=== PATIENT | male | born 1980 | race Caucasian/White ===

== ENCOUNTER 2017-07-07 14:15 | Observation (INO) | payer OTHER ==
[2017-07-07 16:26] LABS: Hematocrit 38 % (42-52); Hemoglobin 12.9 g/dl (14.0-18.0); Mean Corpuscular HGB Conc 34 g/dl (31-36); Mean Corpuscular Hemoglobin 32 pg (27-31); Mean Corpuscular Volume 94 fL (80-94); Mean Platelet Volume 7 um3 (7.4-10.4); Red Blood Count 4.07 10^6/ul (4.0-5.4); Red Cell Distribution Width 13 % (10.5-15); White Blood Count 7.3 10^3/ul (3.5-10.8)
[2017-07-07 16:37] LABS: ALT 14 U/L (7-52); AST 19 U/L (13-39); Albumin 4.8 g/dL (3.2-5.2); Alkaline Phosphatase 40 U/L (34-104); Anion Gap 7 mmol/L (2-11); BUN/Creatinine Ratio 10.1 (8-20); Blood Urea Nitrogen 7 mg/dL (6-24); CO2 Carbon Dioxide 29 mmol/L (22-32); Calcium 9.3 mg/dL (8.6-10.3); Chloride 102 mmol/L (101-111); EGFR African American 165.9 (>60); Globulin 2.1 g/dL (2-4); Glucose 109 mg/dL (70-100); Lipase 15 U/L (11.0-82.0); Potassium 3.5 mmol/L (3.5-5.0); Sodium 138 mmol/L (133-145); Total Protein 6.9 g/dL (6.4-8.9)
[2017-07-07 17:08] LABS: Urine Bilirubin Negative (Negative); Urine Glucose Negative (Negative); Urine Nitrite Negative (Negative)
[2017-07-07 17:51] LABS: C Reactive Protein < 1.00 mg/L (< 5.00)
[2017-07-07] MEDS ORDERED: NS 0.9% 1000 ML* 1,000 ML IV ONE (18:17)
[2017-07-07] MEDS ORDERED: Morphine INJ* 4 MG/ML 1 ML CARPUJECT IV ONE (18:18)
[2017-07-07] MEDS ORDERED: Ondansetron INJ* 2 MG/ML VIAL IV ONE (18:23)
--- NOTE | 2017-07-07 19:37 | RAD ---
Indication: RIGHT upper quadrant pain. Comparison: No relevant prior exams available on the [facility] PACS for comparison. Technique: RIGHT upper quadrant ultrasound. Report: Appropriate direction flow documented in the portal and hepatic veins. 17.2 cm liver is normal in echogenicity. Negative for focal hepatic lesions. Negative for intrahepatic biliary dilatation. 2.6 mm common bile duct. Adequately distended gallbladder with normal 2.0 mm wall is without pathologic finding. Negative for sonographic Reyes's sign. Unremarkable well visualized pancreas. Negative for ascites. 10.7 cm RIGHT kidney is unremarkable. Normal diameter abdominal aorta visualized through the bifurcation. IMPRESSION: Negative RIGHT upper quadrant ultrasound.
--- NOTE | 2017-07-07 19:41 | ED ---
Abdominal Pain/Male - HPI Summary HPI Summary: 37M presents with generalized abdominal pain today. It started while he was eating today at noon. He states it is worst in the center of his epigastrium. He states he is nauseous at times. He denies any vomiting. He denies any blood in his urine or stool. He denies any diarrhea or constipation. He has never had this pain before. He denies any previous abdominal surgeries. He had normal bowel movement this morning. He states pain started right after eating. He had a sandwich. He denies any dysuria, hematuria. He states the pain starts in the front and radiates to the back. He denies any chest pain or SOB. He denies any fevers. He denies any history of GERD symptoms. He denies any generalized feeling of being unwell. - History of Current Complaint Chief Complaint: EDAbdPain Stated Complaint: ABD PAIN Time Seen by Provider: 07/07/17 18:09 Pain Intensity: 8 - Allergies/Home Medications Allergies/Adverse Reactions: Allergies Allergy/AdvReac Type Severity Reaction Status Date / Time No Known Allergies Allergy Verified 07/07/17 14:22 Home Medications: Home Medications NK [No Home Medications Reported] 07/07/17 [History Confirmed 07/07/17] PMH/Surg Hx/FS Hx/Imm Hx Endocrine/Hematology History: Denies: Hx Anticoagulant Therapy, Hx Diabetes Cardiovascular History: Denies: Hx Hypertension Infectious Disease History: No Infectious Disease History: Denies: Traveled Outside the [place] in Last 30 Days - Family History Known Family History: Positive: Other - no history of UC or crohns - Social History Alcohol Use: Weekly Substance Use Type: Reports: None Smoking Status (MU): Never Smoked Tobacco Review of Systems Negative: Fever Negative: Chest Pain Negative: Shortness Of Breath Positive: Abdominal Pain, Nausea. Negative: Vomiting, Diarrhea All Other Systems Reviewed And Are Negative: Yes Physical Exam Triage Information Reviewed: Yes Vital Signs On Initial Exam: Initial Vitals Temp Pulse Resp BP Pulse Ox 97.4 F 52 17 113/67 100 07/07/17 14:21 07/07/17 14:21 07/07/17 14:21 07/07/17 14:21 07/07/17 14:21 Vital Signs Reviewed: Yes Appearance: Positive: Pain Distress Skin: Positive: Warm, Dry Head/Face: Positive: Normal Head/Face Inspection Eyes: Positive: Normal, EOMI, DARRELL, Conjunctiva Clear ENT: Positive: Normal ENT inspection, Pharynx normal, TMs normal Respiratory/Lung Sounds: Positive: Clear to Auscultation, Breath Sounds Present Cardiovascular: Positive: Normal, RRR Abdomen Description: Positive: Soft, Other: - diffusely tender, great in epigastric Bowel Sounds: Positive: Present - [place] Coma Scale Coma Scale Total: 15 Diagnostics - Vital Signs Vital Signs Temp Pulse Resp BP Pulse Ox 07/07/17 19:20 18 07/07/17 18:59 87 21 100 07/07/17 18:30 55 19 119/71 99 07/07/17 18:00 113/68 07/07/17 17:59 51 15 100 07/07/17 17:55 50 100 07/07/17 17:52 112/68 07/07/17 17:39 98.3 F 55 17 104/60 97 07/07/17 16:11 97.8 F 58 18 114/66 100 07/07/17 14:21 97.4 F 52 17 113/67 100 - Laboratory Lab Results: Lab Results 07/07/17 07/07/17 07/07/17 Range/Units 15:35 15:35 16:50 WBC 7.3 (3.5-10.8) 10^3/ul RBC 4.07 (4.0-5.4) 10^6/ul Hgb 12.9 L (14.0-18.0) g/dl Hct 38 L (42-52) % MCV 94 (80-94) fL MCH 32 H (27-31) pg MCHC 34 (31-36) g/dl RDW 13 (10.5-15) % Plt Count 165 (150-450) 10^3/ul MPV 7 L (7.4-10.4) um3 Neut % (Auto) 87.7 H (38-83) % Lymph % (Auto) 8.4 L (25-47) % [place] % (Auto) 3.7 (1-9) % Eos % (Auto) 0.1 (0-6) % Baso % (Auto) 0.1 (0-2) % Absolute Neuts (auto) 6.4 (1.5-7.7) 10^3/ul Absolute Lymphs (auto) 0.6 L (1.0-4.8) 10^3/ul Absolute Monos (auto) 0.3 (0-0.8) 10^3/ul Absolute Eos (auto) 0 (0-0.6) 10^3/ul Absolute Basos (auto) 0 (0-0.2) 10^3/ul Absolute Nucleated RBC 0 10^3/ul Nucleated RBC % 0.1 Sodium 138 (133-145) mmol/L Potassium 3.5 (3.5-5.0) mmol/L Chloride 102 (101-111) mmol/L Carbon Dioxide 29 (22-32) mmol/L Anion Gap 7 (2-11) mmol/L BUN 7 (6-24) mg/dL Creatinine 0.69 (0.67-1.17) mg/dL Est GFR ( Amer) 165.9 (>60) Est GFR (Non-Af Amer) 129.0 (>60) BUN/Creatinine Ratio 10.1 (8-20) Glucose 109 H (70-100) mg/dL Calcium 9.3 (8.6-10.3) mg/dL Total Bilirubin 1.90 H (0.2-1.0) mg/dL AST 19 (13-39) U/L ALT 14 (7-52) U/L Alkaline Phosphatase 40 (34-104) U/L Troponin I 0.00 (<0.04) ng/mL C-Reactive Protein < 1.00 (< 5.00) mg/L Total Protein 6.9 (6.4-8.9) g/dL Albumin 4.8 (3.2-5.2) g/dL Globulin 2.1 (2-4) g/dL Albumin/Globulin Ratio 2.3 (1-3) Lipase 15 (11.0-82.0) U/L Urine Color Yellow Urine Appearance Clear Urine pH 6.0 (5-9) Ur Specific [place] 1.015 (1.010-1.030) Urine Protein Negative (Negative) Urine Ketones 1+ H (Negative) Urine Blood Negative (Negative) Urine Nitrate Negative (Negative) Urine Bilirubin Negative (Negative) Urine Urobilinogen Negative (Negative) Ur Leukocyte Esterase Negative (Negative) Urine Glucose Negative (Negative) Urine Ascorbic Acid * H (Negative) Result Diagrams: 07/07/17 15:35 07/07/17 15:35 Lab Statement: Any lab studies that have been ordered have been reviewed, and results considered in the medical decision making process. - CT abd CT Interpretation: Positive (See Comments) - IMPRESSION: 1. Normal appendix documented. 2. Top normal diameter of multiple small bowel loops in the RIGHT abdomen with air-fluid levels with transition to decompressed distal ileal loops and surrounding mild perienteric inflammatory change. Consider gastroenteritis as well as partial small bowel obstruction. No definitive obstructing lesion identified. 3. Small volume of ascites. Negative for free air. CT Interpretation Completed By: Radiologist - Ultrasound No standard instances Ultrasound Interpretation: No Acute Changes Ultrasound Interpretation Completed By: Radiologist - EKG No standard instances Cardiac Rate: NL EKG Rhythm: Sinus Rhythm ST Segment: Normal EKG Interpretation: normal ekg Re-Evaluation - Re-Evaluation First Eval Re-Evaluation Time: 20:15 Change: Improved Comment: feeling better cramp like in epigastric still Second Eval Re-Evaluation Time: 10:00 Change: Improved Comment: feeling better, no nausea, discussed results with patient Third Eval Re-Evaluation Time: 22:57 Change: Unchanged Comment: no nausea, states feels bloated Fourth Eval Re-Evaluation Time: 23:44 Change: Worse Comment: pain is worst, just as severe as before Abdominal Pain Fem Course/Dx - Course Course Of Treatment: 37M presents with generalized abdominal pain today. It started while he was eating today at noon. He states it is worst in the center of his epigastrium. He states he is nauseous at times. He denies any vomiting. He denies any blood in his urine or stool. He denies any diarrhea or constipation. He has never had this pain before. He denies any previous abdominal surgeries. He had normal bowel movement this morning. He states pain started right after eating. He had a sandwich. He denies any dysuria, hematuria. on exam diffusely tender greatest in epigastric region. ekg normal. normal wbc and crp. gave pain medication and pain mostly locailized to epigastric so gave protonix for potentially a gastritis? CT shows air fluid level with transition to decompressed distal ileal loops and surrounding mild perienteric inflammatory changes. had dr west evaluated patient. due to inflammatory changes on CT dr west advised that should potentially treat as colitis with cipro and flagyl. dr west asked that run case by surgery. discussed with dr chavarria and states that unlikely to be obstruction but if patient would like to be admitted would consult. PO challenge patient and was able to tolerate applesauce and crackers. patient states does not feel comforable with discharge as believe are missing something serious. patient pain has return to the extreme again when tried to discharge patient. dr freeman agrees to admits patient for intractable pain - Diagnoses Differential Diagnosis/HQI/PQRI: Appendicitis, Bowel Obstruction, Gall Bladder Disease, Other - gastroenteritis, gastritis Provider Diagnoses: Abdominal pain Discharge - Discharge Plan Condition: Good Disposition: ADMITTED TO [facility] Referrals: Nimesh Young MD [Primary Care Provider] -
[2017-07-07] MEDS ORDERED: Iohexol 300* (CONTRAST) 10 ML SDV IV ONE (19:42)
[2017-07-07] MEDS ORDERED: Pantoprazole IV* 40 MG IV ONE (20:02)
--- NOTE | 2017-07-07 21:17 | RAD ---
INDICATION: Sudden onset abdominal pain. Nausea. COMPARISON: RIGHT upper quadrant ultrasound of the same date. TECHNIQUE: Multidetector CT images were obtained from the lung bases to the ischial tuberosities with 91 mL Omnipaque 300 IV and oral contrast. Multiplanar reformation. REPORT: Unremarkable visualized inferior thorax. Unremarkable liver, gallbladder, pancreas, spleen. Negative for CT abnormality of the upper GI. Top normal diameter diameter small bowel loops in the RIGHT abdomen with air-fluid levels. Negative for mural thickening or pneumatosis. Mild perienteric inflammatory change at the RIGHT lower quadrant small bowel mesentery. Normal retrocecal appendix visualized in the posterior RIGHT para midline pelvis. Unremarkable colon. Small volume of dependent mildly hyperdense fluid in the dependent pelvis. Negative for free air. No significant abdominal wall or inguinal hernias evident. Normal adrenal glands. Unremarkable kidneys with symmetric nephrograms and pyelograms. Unremarkable nondilated ureters and largely decompressed urinary bladder. Symmetric seminal vesicles. Negative for lymphadenopathy. Normal diameter abdominal aorta and iliac arteries. Physiologic distention of the IVC. Negative for suspicious osseous lesions. IMPRESSION: 1. Normal appendix documented. 2. Top normal diameter of multiple small bowel loops in the RIGHT abdomen with air-fluid levels with transition to decompressed distal ileal loops and surrounding mild perienteric inflammatory change. Consider gastroenteritis as well as partial small bowel obstruction. No definitive obstructing lesion identified. 3. Small volume of ascites. Negative for free air.
[2017-07-07] MEDS ORDERED: Ciprofloxacin TAB* 500 MG PO ONE (22:47)
[2017-07-07] MEDS ORDERED: HYDROcodone/ACETAMIN 5-325 MG* 1 TAB PO ONE ×2 (22:48→23:09)
[2017-07-07] MEDS ORDERED: Ondansetron ODT TAB* 4 MG PO ONE (22:48)
[2017-07-07] MEDS ORDERED: metroNIDAZOLE TAB* 250 MG PO ONE (22:48)
[2017-07-08] MEDS ORDERED: Morphine INJ* 4 MG/ML 1 ML CARPUJECT IV PRN (01:51)
[2017-07-08] MEDS ORDERED: Ondansetron INJ* 2 MG/ML VIAL IV PRN (01:51)
[2017-07-08] MEDS ORDERED: NS 0.45% KCl 20 Meq 1000 ML* 1,000 ML IV SCH (03:00)
[2017-07-08] MEDS ORDERED: Pantoprazole IV* 40 MG IV SCH (09:00)
--- NOTE | 2017-07-08 09:08 | RAD ---
INDICATION: Follow-up small bowel obstruction COMPARISON: CT abdomen pelvis July 07, 2017 TECHNIQUE: 2 views the abdomen were obtained. FINDINGS: On the upright view there are dilated loops of small bowel measuring up to 3.2 cm in diameter. On the supine view loops of small bowel at the upper left of midline abdomen measure just over 3 cm in diameter. There is oral contrast in the proximal colon and gas in the distal colon and rectum. IMPRESSION: GIVEN DIFFERENCES IN TECHNIQUE, THERE APPEARS TO BE NO SUBSTANTIAL CHANGE IN THE DIAMETER DILATATION OF PROXIMAL SMALL BOWEL LOOPS MEASURING JUST OVER 3 CM IN DIAMETER. THE ORAL CONTRAST GIVEN DURING YESTERDAY CT EXAMINATION HAS PROGRESSED TO THE PROXIMAL AND MIDPORTION OF THE COLON.
--- NOTE | 2017-07-08 14:10 | HP ---
CC: Dr. Young. * HISTORY AND PHYSICAL: DATE OF ADMISSION: 07/08/17. CHIEF COMPLAINT: Abdominal pain. HISTORY OF PRESENT ILLNESS: Mr. Benavidez is a 37-year-old man with no past medical history, who reports sudden onset of epigastric pain at around noon on the day prior to admission. The patient's pain worsened rapidly to 10/10 and he came to the emergency room by 2 p.m., approximately 12 hours before admission. The patient has had no associated fever, nausea, vomiting, or diarrhea. He did have anorexia. The patient has no history of similar pain, other than a twinge of pain for 15 minutes in the epigastric area about 2 weeks ago which he attributed to abdominal wall pain from doing exercise. In the ER, the patient had a CAT scan of the abdomen and had a trial of oral fluid. The patient pain returned and we were called to admit the patient for abdominal pain that was intractable. Later on in the ER, while I was assessing the patient he was vomiting copiously for the first time. PAST MEDICAL HISTORY: None. PAST SURGICAL HISTORY: None. MEDICATIONS: None. ALLERGIES: None. FAMILY HISTORY: Notable for mother with colitis. Father had what sounds like pyloric stenosis. Sister has GERD and possible Murray's esophagus. 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 He is . He has no children. He does not smoke. He drinks alcohol about 2 to 3 drinks per week. No recreational drugs. REVIEW OF SYSTEMS: Patient denies any fevers, weight loss, has anorexia today. Patient denies any chest pain or palpitations. He denies any shortness of breath or cough. Patient denies any diarrhea but certainly has abdominal pain, nausea, and vomiting at this point. Remainder of a 14-point review systems negative other than mentioned in the HPI. PHYSICAL EXAMINATION GENERAL: He is alert, in no acute distress. VITAL SIGNS: Temperature is 36.8, pulse 66, respirations 17, blood pressure 127 /56, O2 sat 96%. HEENT: Head is normocephalic, atraumatic. Sclerae anicteric. Pupils equal, round, and reactive to light and accommodation. Oropharynx is moist. No lesions. NECK: No JVD, no carotid bruits. No thyromegaly. LUNGS: Clear to auscultation and percussion. HEART: Regular rate and rhythm without murmurs or gallops. ABDOMEN: Tender in the epigastric, right upper quadrant and to a lesser extent the right lower quadrant. There is a firmness and guarding in the right upper quadrant. No masses, no rebound. EXTREMITIES: No peripheral edema. MUSCULOSKELETAL EXAM: Full range of motion. No muscle wasting. RECTAL: Exam was negative for tenderness. No visible blood. No masses. NEUROLOGIC: Cranial nerves II through XII are intact. Motor strength is 5/5 throughout. Deep tendon reflexes are symmetric. SKIN: No rashes. LABORATORY DATA: Sodium 138, potassium 3.5, chloride 102, bicarb 29, BUN 7, creatinine 0.69, glucose 109, calcium 9.3, albumin 4.8, AST 19, ALT 14, bilirubin 0.8, troponin is 0, lipase is 15, alkaline phosphatase is 119. Urinalysis shows 1+ ketones. EKG shows sinus bradycardia. CT abdomen and pelvis shows normal appendix, some enlarged small bowel loops in the right side and some decompressed bowel loops on the left side consistent with possible early small-bowel obstruction. Gallbladder ultrasound is negative. ASSESSMENT AND PLAN: A 37-year-old man presenting with abdominal pain and vomiting which has not responded to conservative measures in the ER. Differential will include small bowel obstruction, pancreatitis, gastritis, viral gastroenteritis, intussusception, ischemic colitis. Most of these etiologies have been ruled out by normal labs and normal CAT scan. The patient at this point will be admitted to the hospital for observation. I suspect gastroenteritis is the main cause, but we will treat him as a partial small bowel obstruction with fluids and antiemetics. If he has continued vomiting, an NG tube could be placed. If the patient's vomiting continues for more than 24 hours, we will consult Gastroenterology. If small-bowel obstruction seems to progress on x-ray, the patient can have surgical consultation. It will be unusual to have a small- bowel obstruction without history of surgery. Code status is full. DVT prophylaxis will be accomplished by just having early ambulation. [id number]/[facility] #: [id number] [facility]
[2017-07-08 15:32] VITALS: BP 100/57
--- NOTE | 2017-07-09 11:39 | DS ---
DISCHARGE SUMMARY: DATE OF ADMISSION: 07/08/17 DATE OF DISCHARGE: 07/08/17 ADMITTING PROVIDER: Sergo Bingham MD. ATTENDING PHYSICIAN: Casey Crouch MD. PRIMARY CARE PROVIDER: Dr. Young. CHIEF COMPLAINT: Abdominal pain, nausea, vomiting. PAST MEDICAL HISTORY: None. HISTORY OF PRESENT ILLNESS AND HOSPITAL COURSE: Mr. Benavidez is a 37-year-old male, no PMH, who presented with sudden onset of epigastric pain at noon on . This worsened to 10/10 pain and he came to the emergency room 2 hours later. In the emergency room, he had a CT abdomen and pelvis, which demonstrated top normal diameter of his small bowel loops in the right abdomen with an air-fluid level with transition to decompressed distal ileal loops and surrounding mild perienteric inflammatory changes. Radiological differential was gastroenteritis versus partial small bowel obstruction, but no definitive obstructing lesion was identified. Gallbladder ultrasound, which was negative. Emergency room physician consulted surgical service who reportedly reviewed the images and thought imaging was not consistent with a complete small bowel obstruction. The patient was given a diet. Initially tolerated it okay for an hour, but then suddenly had return of severe abdominal pain, nausea, and vomiting, and was then referred to hospitalist service for admission for abdominal pain. The patient's LFTs were within normal limits. Lactic acid 0.7. Lipase 15. Urinalysis benign. The patient got to the floor later on and tolerated clear liquid diet without any pain or nausea. Again, for lunch , tolerated some soup without any pain, but some mild stomach upset, which he barely noticed. He was given a vegan unrestricted diet for a second lunch, which he tolerated without any abdominal pain. He was passing flatus. No nausea whatsoever. His vital signs were stable. He did have a T-max of 99.5 at 3 a.m. on 07/08/17. No leukocytosis or other concerns for infection. He did receive a dose of Cipro and Flagyl in the emergency room for potential inflammatory changes in the small bowel. The patient will follow up with Dr. Young and was given Zofran for p.r.n. nausea medication, told to return and seek medical care if the abdominal pain returns. DISCHARGE MEDICATIONS: Include Zofran 4 mg p.o. q.6 hours p.r.n. for nausea and vomiting, 10 tabs. ACTIVITY LEVEL: No restrictions. DIET: No restrictions. FOLLOWUP: With Dr. Young within 3 to 5 business days. TIME SPENT: Time spent on discharge was 35 minutes. [id number]/[facility] #: [id number] [facility]
--- NOTE | 2017-07-09 20:04 | CONS ---
CONSULTATION REPORT: DATE OF CONSULT: 07/08/17 REASON FOR CONSULT: Abdominal pain. HISTORY OF PRESENT ILLNESS: This is a 37-year-old previously healthy male who presented to the [facility] emergency room with sudden onset epigastric abdominal pain following lunch, which consisted of a sandwich made with seitan and spinach. He reports he had sharp severe pain approximately 20 minutes following lunch and he was in the midst of a class at [employer]. He had to leave class and called his significant other to bring him to the emergency room. The patient was evaluated by emergency room staff and had a gallbladder ultrasound and CT scan of the abdomen and pelvis. An ultrasound was negative. CT scan suggested a top normal diameter multiple small bowel loops in the right abdomen with air fluid levels with transition to decompressed distal ileal loops and surrounding mild perienteric inflammatory change. Suggested differential of gastroenteritis versus partial small bowel obstruction. Based on these findings, the emergency room providers requested surgical evaluation. The patient was admitted to the hospitalist service. He had episodes of nausea, vomiting, and dry heaves. Subsequently, his symptoms did resolve and at the time I evaluated him, he was eating some solid foods, sitting up in bed. He denied fevers or chills. He reports he had a prior episode of similar but less severe pain following abdominal exercises. He has had no diarrhea or constipation. No fevers or chills. PAST MEDICAL HISTORY: Unremarkable. PAST SURGICAL HISTORY: Unremarkable. MEDICATIONS: None. ALLERGIES: None known. FAMILY HISTORY: Reviewed and was noncontributory. 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 Denies drug use. Occasionally drinks alcohol. PHYSICAL EXAM: Temperature 98.2, pulse 57, respirations 16, O2 sat 98% on room air, blood pressure 99/55. Head is normocephalic and atraumatic. Sclerae anicteric. Mucous membranes are moist. No odor or rhinorrhea was appreciated. His lungs were clear to auscultation bilaterally without wheezes, rales, or rhonchi. His heart was regular, S1 and S2. No murmurs, rubs, gallops appreciated. The abdomen is without scars, nondistended. Bowel sounds present. Soft, nontender. No palpable masses. No hernias. No hepatosplenomegaly appreciated. Extremities are warm. RADIOGRAPHIC DATA/LABORATORY DATA: The CT scan images, gallbladder images and laboratory data were all reviewed. His WBC's were normal. He had no shift. He had a mild anemia with the hemoglobin of 12.9 and on chemistry, he has had mild elevation of his glucoses. Also total bilirubin 1.9 with remaining liver functions normal, CRP normal, lipase normal. IMPRESSION: A 37-year-old male with findings of abdominal pain in the epigastrium which appeared not to be related to a biliary source. Possible gastroenteritis given the findings on CT scan. He is resolving. PLAN/RECOMMENDATIONS: Diet as tolerated. No surgical intervention or followup is required. [id number]/[facility] #: [id number] [facility]
== END 2017-07-08 16:45 | disposition home or self-care (01) ==
LOC: ED 14:15 → MED 07-08 01:48
PROVIDERS: ADMIT Internal Medicine; ATTEND Internal Medicine
DX: R10.13 Epigastric pain (principal); R11.2 Nausea with vomiting, unspecified; R00.1 Bradycardia, unspecified
CPT/HCPCS: 36415; 74000; 74177; 76705; 80053; 81003; 83605; 83690; 84484; 85025; 86140; 93005; 96365; 96366; 96375; 99285; A9270-GY; G0378; J2270; J2405; Q9967